=== PATIENT | female | born 1990 | race Caucasian/White ===

== ENCOUNTER 2022-07-28 05:01 | Emergency (ER) | payer SELFPAY ==
[~2022-07-28] VITALS: Ht 147.3 cm; Wt 65.8 kg
[2022-07-28] MEDS ORDERED: Ativan1 MG PO (05:13)
[2022-07-28] MEDS ORDERED: TERB250 PO (05:13)
[2022-07-28] MEDS ORDERED: CYCL10 PO (05:14)
[2022-07-28] MEDS ORDERED: ZONI100 PO (05:14)
[2022-07-28] MEDS ORDERED: NAPR500 PO (05:14)
[2022-07-28] MEDS ORDERED: CLON1 PO (05:15)
[2022-07-28 06:51] VITALS: BP 132/76
[2022-07-28] MEDS ORDERED: AMOCLA875 PO (07:10)
== END 2022-07-28 07:23 | disposition home or self-care (01) ==
LOC: ER 05:01
DX: S61.242A Puncture wound with foreign body of right middle finger without damage to nail, initial encounter (principal); L03.011 Cellulitis of right finger; G40.909 Epilepsy, unspecified, not intractable, without status epilepticus; F17.210 Nicotine dependence, cigarettes, uncomplicated; Z88.8 Allergy status to other drugs, medicaments and biological substances; Z79.899 Other long term (current) drug therapy; W60.XXXA Contact with nonvenomous plant thorns and spines and sharp leaves, initial encounter
CPT/HCPCS: 73130; 99283-25; A9270